=== PATIENT | male | born 1965 | race African-American/Black ===

== ENCOUNTER → 2017-01-11 | Outpatient (CLI) | payer BC ==
[~2017-01-11] MED LIST: ATARAX PO; BACTRIM DS TABL1 TA1 PO; DICLOFENAC PO; FLEXERIL PO; KEFLEX500 MG PO; LORTAB 7.51 TAB 7.5/ PO; MEDROL DOSEPAK4 MG DOB; MEDROL4 MG/DOSE- PO; TRIAMCINOLONE A15 G2 EXT
--- NOTE | ~2017-01-11 | US6 ---
[facility] A Service of [facility] RADIOLOGY TEXT RESULTS PATIENT: KANE MANZO LOCATION: [facility] : 69 UNIT #: [id number] AGE: [address]: Idalia Carroll APRN SEX: M ORDER DR: [id number] [facility] [address] [place], [place] [address] [id number] O MR#: [id number] Acc #: [id number] NAME: KANE MANZO : 1965 SEX: M STUDY DATE/TIME: 01/11/2017 10:48 UNIT: [facility]US ROOM: STUDY DESCRIPTION: US Abdominal Limited Attending Physician: Idalia Carroll Referring Physician: Idalia Carroll Ordering Physician: Idalia Carroll Primary Care Physician: Primary Care Physician No MEDICAL IMAGING REPORT This report is preliminary unless electronic signature is present EXAM Right upper quadrant ultrasound 01/11/2017 HISTORY Right upper quadrant abdominal pain for 2 years worsening in the last 6 months with no known injury. FINDINGS Ultrasound examination of the gallbladder is negative. There is no cholelithiasis, gallbladder wall thickening, or bile duct dilatation. The visualized liver is negative. IMPRESSION Negative gallbladder ultrasound examination. Dictated by... Iglesia Hernandez M.D. THIS IS AN ELECTRONICALLY VERIFIED REPORT Iglesia Hernandez M.D. at 01/12/2017 8:29 AM KAREN/anjelica TD: 01/11/2017 13:51 JOB #: [id number] MEDICAL IMAGING REPORT Page 1 of 1 COPY
== END | disposition home or self-care (01) ==
LOC: CGUS 10:22
DX: R10.11 Right upper quadrant pain (principal)
CPT/HCPCS: 76705